=== PATIENT | female | born 1995 | race African-American/Black ===

== ENCOUNTER 2018-04-25 14:34 | Emergency (ER) | payer OTHER ==
[2018-04-25 15:16] LABS: Bilirubin Negative (Negative); Blood, Urine Negative (Negative); Clarity Clear (Clear); Glucose, Urine (Dipstick) Negative (Negative); Leukocyte Negative (Negative); Nitrite Negative (Negative); Protein, Urine (Dipstick) Negative (Neg-Trace)
[2018-04-25 15:17] LABS: Pregnancy Test - Urine (BHCG) POSITIVE (Negative); Pregu Control Background? CLEAR/WHITE (CLR/WHITE); Pregu Control Bar Appear? YES (CONTROL BAR)
[2018-04-25 15:52] LABS: #Basophils 0.1 thou/uL (0.0-0.2); #Eosinphils 0.3 thou/uL (0.0-0.7); #Lymphocytes 1.4 thou/uL (1.20-3.40); #Monocytes 0.5 thou/uL (0.11-0.59); #Neutrophils 5.6 thou/uL (1.40-6.50); %Basophils 0.8 % (0.0-1.0); %Eosinophils 4.3 % (0.0-10.0); %Monocytes 5.9 % (0.0-10.0); Hemoglobin 10.6 g/dL (12.0-16.0); Mean Corpuscular HGB CONC 31.4 g/dL (32.0-36.0); Mean Corpuscular Volume 95.6 fL (78.0-98.0); Mean Platelet Volume 12.3 fL (7.4-10.4); PLT Morphology Comment Appears Adequate; Platelet Count 147 thou/uL (130-400); RBC Distribution Width 12.6 % (11.5-14.5); Red Blood Cell (RBC) Count 3.55 mill/uL (4.20-5.40); White Blood Cell (WBC) Count 7.8 thou/uL (4.8-10.8)
== END 2018-04-25 15:52 | disposition left against medical advice (07) ==
LOC: SCSER 14:34
DX: O20.9 Hemorrhage in early pregnancy, unspecified (principal); Z3A.21 21 weeks gestation of pregnancy
CPT/HCPCS: 36415; 81003; 81025; 84702; 85025; 99284

== ENCOUNTER 2018-08-24 17:00 | Inpatient (IN) | payer OTHER ==
[~2018-08-24 17:00] MED LIST: Ketorolac Tromethamine 30 MG/ML VIAL ONE; Ondansetron PF 4 MG/2 ML Vial ONE; ePHEDrine 50 MG/ML VIAL ONE
[2018-08-24 17:33] VITALS: BMI 25.8
[2018-08-24] MEDS: Lactated Ringer's 1,000 ML IV SCH ×3 (18:24→21:27)
[2018-08-24] MEDS ORDERED: Ondansetron PF 4 MG/2 ML Vial IVP PRN ×2 (21:38→22:02)
[2018-08-24] MEDS ORDERED: CEFAZOLIN 2 GM/50 ML BAG ONE (21:39)
[2018-08-24] MEDS ORDERED: Bicitra 30 ML UDCUP ONE (21:39)
[2018-08-24] MEDS ORDERED: Bicitra 30 ML UDCUP PO SCH (21:45)
[2018-08-24] MEDS ORDERED: Lactated Ringer's 1,000 ML IV SCH (21:45)
[2018-08-24] MEDS ORDERED: CEFAZOLIN 2 GM/50 ML BAG IVPB SCH (21:45)
[2018-08-24] MEDS ORDERED: Ketorolac Tromethamine 30 MG/ML VIAL ONE (21:47)
[2018-08-24] MEDS ORDERED: Ondansetron PF 4 MG/2 ML Vial ONE (21:47)
[2018-08-24] MEDS ORDERED: MORPHINE 5 MG/10 ML PF VIAL ONE (21:47)
[2018-08-24] MEDS ORDERED: Oxytocin 10 UNITS/ML VIAL ONE ×2 (21:47→22:51)
[2018-08-24] MEDS ORDERED: ePHEDrine/0.9% NaCl/PF SYRINGE 50 mg/10 ml ONE (21:48)
[2018-08-24 21:58] LABS: Hemoglobin 10.5 g/dL (12.0-16.0); Mean Corpuscular HGB CONC 31.6 g/dL (32.0-36.0); Mean Corpuscular Hemoglobin 30.9 pg (27.0-31.0); Mean Corpuscular Volume 97.7 fL (78.0-98.0); Mean Platelet Volume 11.6 fL (7.4-10.4); Platelet Count 146 thou/uL (130-400); RBC Distribution Width 13.4 % (11.5-14.5); White Blood Cell (WBC) Count 7.1 thou/uL (4.8-10.8)
[2018-08-24] MEDS ORDERED: Promethazine HCl 25 MG/ML VIAL IM PRN (22:02)
[2018-08-24] MEDS ORDERED: Promethazine HCl 25 MG SUPP PR PRN (22:02)
[2018-08-24] MEDS ORDERED: HYDROmorphone 2 MG/ML VIAL SLOW IVP PRN (22:02)
[2018-08-24] MEDS ORDERED: Ketorolac Tromethamine 30 MG/ML VIAL IVP PRN (22:02)
[2018-08-24] MEDS ORDERED: Ondansetron HCl/PF 4 MG/2 ML Vial IVP PRN (22:02)
[2018-08-24] MEDS ORDERED: Eucerin (Mineral Oil/Petrolatum,White) 30 gm Jar TOP PRN (22:02)
[2018-08-24] MEDS ORDERED: Naloxone HCl 0.4 mg/ml Vial IVP PRN ×2 (22:02)
[2018-08-24] MEDS ORDERED: Meperidine HCl/PF 25 MG/ML VIAL SLOW IVP PRN (22:02)
[2018-08-24] MEDS ORDERED: L&D-Morphine 4 MG/ML VIAL SLOW IVP PRN (22:02)
[2018-08-24] MEDS ORDERED: Naloxone HCl 0.4 mg/ml Vial IV PRN (22:02)
[2018-08-24] MEDS ORDERED: Communication Order-Pharmacy FS SCH (22:15)
[2018-08-24] MEDS ORDERED: Ketorolac Tromethamine 30 MG/ML VIAL IVP SCH (22:15)
[2018-08-24 22:27] LABS: Syphilis Antibody Nonreactive (Nonreactive); Syphilis Antibody Index 0.05 S/CO (<1.00 Non-Reactive)
[2018-08-24] MEDS ORDERED: Carboprost 250 MCG/ML AMP ONE (22:37)
[2018-08-24] MEDS ORDERED: Methylergonovine 0.2 MG/ML VIAL ONE (22:37)
--- NOTE | 2018-08-24 23:35 | PDOC.OPDEL ---
OB Operative/Delivery Note Delivery Dr/Surgeon: Praveen Assist: [email or web address] Pre-Delivery Diagnosis: active labor Procedure/Post Delivery Dx: repeat low transverse CS Weeks gestation: 38 (4 days) Anesthesia: spinal - Findings A Sex: male - 1 min: 8 - 5 min: 9 - Additional Findings/Plan Estimated blood loss: QBL Pending Compilations/Other Findings: Date of Procedure: 08/24/18 Tool Honing Machine Set Up Operator Surgeon: Toi Benavidez PGY-2 Attending Surgeon: Rudy Morton Procedure: Repeat low transverse caesarean section Preoperative Diagnosis: 1)Term intrauterine pregnancy2)Previous x3 Postoperative Diagnosis: 1)same as above plus any other findings during surgery Anesthesia: spinal Indications: The patient is a 22 year old G2,P3 female at 38.4 weeks gestation who presented in active labor and has had 2 prior c-sections. Procedure in Detail: After risks, benefits, and alternatives were explained to the patient, she gave informed consent. Pre-operative antibiotics included Cefazolin 2 gram IV. The patient was taken to the operating room and spinal anesthesia was initiated. She was placed in the supine position with a left tilt and prepped and draped in usual sterile fashion. A Pfannenstiel incision was made with a scalpel and carried down to the level of the fascia which was sharply nicked. The fascial cut was extended bilaterally with curved Sorenson sissors. The inferior and superior edges of the cut fascial edges were elevated with Ronald clamps and the underlying rectus muscles were sharply and bluntly dissected free. The recti were divided digitally and retracted manually. The peritoneum was entered bluntly and retracted manually. Bladder blade was placed. Bladder flap was created with Metzenbaum scissors. A low transverse score was made with the scalpel and the uterus was entered in the midline with the scalpel. The lower uterine segment was noted to be thin. Clear fluid was seen. The hysterotomy was extended manually. The was noted to be vertex and was easily delivered by fundal pressure. Mouth and nares were bulb suctioned. Cord clamped and cut and grossly normal male was handed to waiting nurse. Cord blood was obtained. Placenta was manually extracted, found to be intact with 3 vessel cord and discarded. The uterus was externalized and the endometrium was curetted with a dry lap. The bladder blade was replaced and the uterus was closed with a running locking 0-Vicryl suture. A small bleed was closed with a 3-0 Chromic Suture in the horizontal matress fashion. Following this hemostasis was noted. The abdomen was irrigated with saline and suctioned free of clots. The uterus was internalized and the hysterotomy was again noted to be hemostatic. The peritoneum was closed with a 3-0 vicryl suture in the running non-locking fashion. The fascia was closed with a running non-locking 0-PDS suture. The subcutaneous tissue was irrigated and there were no bleeders. The subq was then closed with 3 interupted suture with 3-0 chromic. The skin was approximated with romelia and a pressure dressing was placed. All counts were correct. The patient tolerated the procedure well and was taken to the recovery room in stable condition. Estimated Blood Loss: 700 ml, QBL pending at time of dictation Complications: None Specimens: Cord blood sent to lab for blood type Findings: Grossly normal male with apgars of 8 and 9. Grossly normal placenta with 3 vessel cord discarded. Drains: Enciso to gravity draining clear urine Post delivery plan: routine recovery
[2018-08-24 23:52] LABS: HBSAg Index 0.22 S/CO (0-0.99); Hep B Surf Ag Non-Reactive S/CO (NonReactive)
[2018-08-25] MEDS ORDERED: Simethicone Chewable 80 MG TAB PO PRN (00:50)
[2018-08-25] MEDS ORDERED: Lanolin Ointment 7 GM TUBE TOP PRN (00:50)
[2018-08-25] MEDS ORDERED: Ondansetron PF 4 MG/2 ML Vial IVP PRN (00:50)
[2018-08-25] MEDS ORDERED: HYDROcodone/Acetaminophen 5/325 mg Tablet PO PRN (00:50)
[2018-08-25] MEDS ORDERED: Bisacodyl 10 MG SUPP PR PRN (00:50)
[2018-08-25] MEDS ORDERED: Meperidine HCl/PF 25 MG/ML VIAL IM PRN (00:50)
[2018-08-25] MEDS ORDERED: NS / Oxytocin 40 units/1000ml 1,000 ML IV SCH (00:50)
[2018-08-25] MEDS ORDERED: Lactated Ringer's 1,000 ML IV SCH (00:50)
[2018-08-25] MEDS: diphenhydrAMINE 50 MG/ML VIAL IVP PRN ×2 (02:14→12:17)
[2018-08-25 06:25] LABS: Mean Corpuscular HGB CONC 31.3 g/dL (32.0-36.0); Mean Corpuscular Hemoglobin 30.4 pg (27.0-31.0); Mean Platelet Volume 11.3 fL (7.4-10.4); Platelet Count 130 thou/uL (130-400); RBC Distribution Width 13.3 % (11.5-14.5); Red Blood Cell (RBC) Count 3.29 mill/uL (4.20-5.40); White Blood Cell (WBC) Count 9.5 thou/uL (4.8-10.8)
[2018-08-25] MEDS ORDERED: Adacel (T-DAP) 0.5 ML SYRINGE IM ONE (09:00)
[2018-08-25] MEDS: Ferrous Sulfate 325 MG TAB PO SCH ×2 (09:26→21:45)
[2018-08-25] MEDS: Prenatal Vitamin 1 TAB PO SCH (09:26)
[2018-08-25] MEDS: HYDROcodone/Acetaminophen 5/325 mg Tablet PO PRN ×2 (15:14→21:12)
[2018-08-25] MEDS: Ibuprofen 800 MG TAB PO SCH (21:12)
[2018-08-26] MEDS: Ibuprofen 800 MG TAB PO SCH ×3 (05:42→21:27)
[2018-08-26] MEDS ORDERED: Ibuprofen 800 MG TAB PO SCH (06:00)
[2018-08-26] MEDS: Ferrous Sulfate 325 MG TAB PO SCH ×2 (08:23→21:27)
[2018-08-26] MEDS: Prenatal Vitamin 1 TAB PO SCH (08:41)
[2018-08-26] MEDS: HYDROcodone/Acetaminophen 5/325 mg Tablet PO PRN ×3 (11:01→21:27)
[2018-08-27] MEDS: HYDROcodone/Acetaminophen 5/325 mg Tablet PO PRN ×2 (02:50→14:03)
[2018-08-27] MEDS: Ibuprofen 800 MG TAB PO SCH ×2 (06:10→14:03)
[2018-08-27 08:23] VITALS: BP 100/57; TEMP 97.8
[2018-08-27] MEDS: Prenatal Vitamin 1 TAB PO SCH (09:55)
[2018-08-27] MEDS: Ferrous Sulfate 325 MG TAB PO SCH (09:55)
== END 2018-08-27 17:12 | disposition home or self-care (01) | DRG 788 ==
LOC: L&D/OP 17:00 → L&D 21:53 → 3SW 08-25 01:39
PROVIDERS: ADMIT Family Medicine; ATTEND Family Medicine
PROC: 10D00Z1 Extraction of Products of Conception, Low, Open Approach (ICD-10-PCS; principal; 2018-08-24)
DX: O34.211 Maternal care for low transverse scar from previous cesarean delivery (principal); O75.82 Onset (spontaneous) of labor after 37 completed weeks of gestation but before 39 completed weeks gestation, with delivery by (planned) cesarean section; Z3A.38 38 weeks gestation of pregnancy; Z37.0 Single live birth
CPT/HCPCS: 36415; 51702; 85027; 86780; 86850; 86900; 86901; 87340; 99285; J1200; J1885; J2210; J2270; J2405; J2590; J3490

== ENCOUNTER 2019-11-05 12:24 | Emergency (ER) | payer OTHER | END 2019-11-05 12:59 | disposition home or self-care (01) | LOC: ERS 12:24 | DX: J06.9 Acute upper respiratory infection, unspecified (principal) | CPT/HCPCS: 99283 ==

== ENCOUNTER 2020-02-09 15:24 | Emergency (ER) | payer OTHER ==
--- NOTE | 2020-02-09 16:39 | RAD ---
EXAM: Single view of the chest HISTORY: Chest pain COMPARISON: None FINDINGS: Single view of the chest shows a normal sized cardiomediastinal silhouette. There is no adalid dence of consolidation, mass, or pleural effusion. The bones are unremarkable IMPRESSION: No evidence of acute cardiopulmonary disease
[2020-02-09 17:01] LABS: #Eosinphils 0.1 thou/uL (0.0-0.7); #Lymphocytes 1.6 thou/uL (1.20-3.40); #Monocytes 0.3 thou/uL (0.11-0.59); #Neutrophils 3.4 thou/uL (1.40-6.50); %Basophils 0.7 % (0.0-1.0); %Eosinophils 2.6 % (0.0-10.0); %Monocytes 5.7 % (0.0-10.0); Hemoglobin 11.7 g/dL (12.0-16.0); Mean Corpuscular HGB CONC 31.1 g/dL (32.0-36.0); Mean Corpuscular Hemoglobin 30.3 pg (27.0-31.0); Mean Corpuscular Volume 97.3 fL (78.0-98.0); Mean Platelet Volume 10.5 fL (7.4-10.4); Platelet Count 188 thou/uL (130-400); RBC Distribution Width 11.3 % (11.5-14.5); Red Blood Cell (RBC) Count 3.88 mill/uL (4.20-5.40); White Blood Cell (WBC) Count 5.5 thou/uL (4.8-10.8)
[2020-02-09 17:21] LABS: BHCG - Serum Negative (NEGATIVE); Pregs Control Background? CLEAR/WHITE (CLR/WHITE); Pregs Control Bar Appear? YES (CONTROL BAR)
[2020-02-09 17:28] LABS: ALT (SGPT) 12 U/L (8-55); AST (SGOT) 13 U/L (5-34); Albumin 4.2 g/dL (3.5-5.0); Alkaline Phosphatase 83 U/L (40-110); Anion Gap 10 mmol/L (10-20); BUN (Urea Nitrogen) 12 mg/dL (7.0-18.7); Bilirubin, Total 0.7 mg/dL (0.2-1.2); Calc. Creatinine Clearance 0 mL/min (70-130); Calcium 9.3 mg/dL (7.8-10.44); Carbon Dioxide 25 mmol/L (22-29); Chloride 105 mmol/L (98-107); Estimated GFR-MDRD Greater than 90; Globulin 3.7 g/dL (2.4-3.5); Glucose 75 mg/dL (70-105); Potassium 3.3 mmol/L (3.5-5.1); Protein, Total 7.9 g/dL (6.0-8.3); Sodium 137 mmol/L (136-145)
[2020-02-09 17:40] LABS: Bilirubin Negative (Negative); Blood, Urine Negative (Negative); Clarity Clear (Clear); Glucose, Urine (Dipstick) Normal (Negative); Ketone, Urine Trace mg/dL (Negative); Leukocyte Negative Leu/uL (Negative); Nitrite Negative (Negative); Protein, Urine (Dipstick) Negative (Neg-Trace); Specific Gravity, Urine 1.025 (1.002-1.036); Urobilinogen Normal mg/dL (Less than 2); pH, Urine 5.5 (5.0-9.0)
[2020-02-10 14:05] LABS: SARS-CoV-2 MS2 Positive; SARS-CoV-2 N Gene Negative; SARS-CoV-2 S Gene Negative; SARS-CoV-2 by NAA Not Detected (NotDetected); SARS-CoV-2 orf1ab Negative
== END 2020-02-09 18:33 | disposition home or self-care (01) ==
LOC: ERS 15:24
DX: R07.89 Other chest pain (principal); R10.31 Right lower quadrant pain
CPT/HCPCS: 71045; 80053; 81003; 84703; 85025; 87635; 93005; U0003

== ENCOUNTER 2020-04-26 16:41 | Emergency (ER) | payer OTHER ==
[2020-04-26 17:25] LABS: #Basophils 0.1 thou/uL (0.0-0.2); #Eosinphils 0.7 thou/uL (0.0-0.7); #Lymphocytes 2.1 thou/uL (1.20-3.40); #Monocytes 0.6 thou/uL (0.11-0.59); #Neutrophils 6.1 thou/uL (1.40-6.50); %Basophils 0.6 % (0.0-1.0); %Eosinophils 7.5 % (0.0-10.0); %Monocytes 6.1 % (0.0-10.0); %Neutrophils 63.8 % (42.0-75.0); Hemoglobin 12.3 g/dL (12.0-16.0); Mean Corpuscular HGB CONC 33.1 g/dL (32.0-36.0); Mean Corpuscular Hemoglobin 31.8 pg (27.0-31.0); Platelet Count 214 thou/uL (130-400); RBC Distribution Width 11.3 % (11.5-14.5); Red Blood Cell (RBC) Count 3.87 mill/uL (4.20-5.40); White Blood Cell (WBC) Count 9.5 thou/uL (4.8-10.8)
[2020-04-26 19:17] LABS: Bacteria/HPF None Seen HPF (None Seen); Bilirubin Negative (Negative); Blood, Urine 1+ (Negative); Clarity Clear (Clear); Glucose, Urine (Dipstick) Normal (Negative); Ketone, Urine Trace mg/dL (Negative); Leukocyte 75 Leu/uL (Negative); Nitrite Negative (Negative); Protein, Urine (Dipstick) Negative (Neg-Trace); RBC/HPF 0-3 HPF (0-3); Specific Gravity, Urine 1.029 (1.002-1.036); Urobilinogen Normal mg/dL (Less than 2); WBC/HPF 0-3 HPF (0-3)
--- NOTE | 2020-04-26 19:48 | ULT ---
PELVIC ULTRASOUND: 04/26/20 HISTORY: First trimester bleeding. Real time imaging of the pelvis was obtained transabdominally as well as with an endovaginal probe. T his shows a somewhat oblong shaped intrauterine gestational sac, low within the uterus in the lower u terine segment. Directly superior to this is heterogeneous echogenic area which is felt to be within the endometrium probably related to blood. A yolk sac and what is felt to be a pole is identifi ed. The crown to rump length measurements are 2.1 mm corresponding to 5 weeks, 5 days. No hear t rate could be obtained on this exam. The gestational sac measurements are 2.1 cm corresponding to 7 weeks. There is a large 4.7 cm left ovarian cyst. Right ovary was not visualized. DOPPLER EVALUATION WITH SPECTRAL ANALYSIS: Normal flow is shown to the left ovary. IMPRESSION: Low lying intrauterine gestational sac. There is some discrepancy between the gestational sac size an d the pole. In addition, no heart activity is seen, although this may be related to the v sharon small size of the pole. The sac is in an abnormal position low within the uterine segment. Heterogeneous material superior to this is felt to represent blood. POS: JAQUELIN
[2020-04-30 18:48] LABS: Chlamydia by PCR Not Detected (NotDetected); GC by PCR Not Detected (NotDetected)
== END 2020-04-26 20:25 | disposition home or self-care (01) ==
LOC: ERS 16:41
DX: O20.0 Threatened abortion (principal); Z3A.01 Less than 8 weeks gestation of pregnancy
CPT/HCPCS: 36415; 76856; 81003; 81015; 84702; 85025; 86900; 86901; 87480; 87491; 87510; 87591; 87660

== ENCOUNTER 2022-09-13 10:47 | Emergency (ER) | payer OTHER ==
[2022-09-13 11:25] LABS: Bilirubin Negative (Negative); Blood, Urine Negative (Negative); Clarity Clear (Clear); Glucose, Urine (Dipstick) Normal (Negative); Ketone, Urine Negative (Negative); Leukocyte 250 Leu/uL (Negative); Nitrite Negative (Negative); Protein, Urine (Dipstick) 10 mg/dL (Neg-Trace); RBC/HPF 0-3 HPF (0-3); Specific Gravity, Urine 1.012 (1.002-1.036); Squamous Epithelial 0-3 HPF (0-3); Urobilinogen Normal mg/dL (Less than 2); WBC/HPF 21-50 HPF (0-3); pH, Urine 6.5 (5.0-9.0)
[2022-09-13 11:26] LABS: Bacteria/HPF 1+ HPF (None Seen)
[2022-09-13 11:27] LABS: Pregnancy Test - Urine (BHCG) Negative (Negative); Pregu Control Background? CLEAR/WHITE (CLR/WHITE); Pregu Control Bar Appear? YES (CONTROL BAR); Specific Gravity 1.012 (1.002-1.036)
== END 2022-09-13 11:47 | disposition home or self-care (01) ==
LOC: ERS 10:47
DX: N39.0 Urinary tract infection, site not specified (principal); R30.0 Dysuria
CPT/HCPCS: 81003; 81015; 81025; 99283